=== PATIENT | female | born 1995 | race Caucasian/White ===

== ENCOUNTER 2017-04-24 21:40 | Emergency (ER) | payer BC ==
[~2017-04-24] VITALS: Ht 165.1 cm; Wt 95.0 kg
[2017-04-24 21:42] VITALS: BP 126/76; PULSE 95; RESP 16; TEMP 97.9; O2SAT 98
--- NOTE | 2017-04-24 23:00 | PD ---
HPI Chief Complaint: Injury Time Seen by Provider: 22:46 Travel History International Travel<30 days: No Contact w/Intl Traveler<30days: No Traveled to known affect area: No History of Present Illness HPI while playfully wrestling with her boyfriend he landed on her outstretched left arm. now c/o left shoulder pain, sharp, specially if lifting above 90 degrees and also left forearm pain as well. no gross deformity noted, pink extremity and able to move on her own. [facility] Past Medical History Medical History: Denies Significant Hx ?: Not Past Surgical History Surgical History: No Previous Surgery Social History Alcohol Use: No Tobacco Use: No Substance Use: No Allergies-Medications (Allergen,Severity, Reaction): Coded Allergies: No Known Allergies (Verified Allergy, Unknown, 04/24/17) Reported Meds & Prescriptions Reported Meds & Active Scripts Active No Active Prescriptions or Reported Medications Review of Systems Except as stated in HPI: all other systems reviewed are Neg General / Constitutional: No: Fever Eyes: No: Visual changes HENT: No: Headaches Cardiovascular: No: Chest Pain or Discomfort Respiratory: No: Shortness of Breath Gastrointestinal: No: Abdominal Pain Genitourinary: No: Dysuria Musculoskeletal: Positive: Pain Skin: No Rash Neurologic: No: Weakness Psychiatric: No: Depression Endocrine: No: Polydipsia Hematologic/Lymphatic: No: Easy Bruising Physical Exam Narrative GENERAL: SKIN: Warm and dry. HEAD: Atraumatic. Normocephalic. EYES: Pupils equal and round. No scleral icterus. No injection or drainage. ENT: No nasal bleeding or discharge. Mucous membranes pink and moist. NECK: Trachea midline. No JVD. CARDIOVASCULAR: Regular rate and rhythm. RESPIRATORY: No accessory muscle use. Clear to auscultation. Breath sounds equal bilaterally. GASTROINTESTINAL: Abdomen soft, non-tender, nondistended. MUSCULOSKELETAL: Extremities without clubbing, cyanosis, or edema. No obvious deformities. NEUROLOGICAL: Awake and alert. No obvious cranial nerve deficits. Motor grossly within normal limits. Five out of 5 muscle strength in the arms and legs. Normal speech. PSYCHIATRIC: Appropriate mood and affect; insight and judgment normal. Data Data Last Documented VS Vital Signs Date Time Temp Pulse Resp B/P (MAP) Pulse Ox O2 Delivery O2 Flow Rate FiO2 04/24/17 21:42 97.9 95 16 126/76 (93) 98 Room Air Orders Orders Shoulder, Complete (>2vws) (04/24/17 ) Forearm (2vws) (04/24/17 ) MDM Medical Decision Making Medical Screen Exam Complete: Yes Emergency Medical Condition: Yes Medical Record Reviewed: Yes Differential Diagnosis shoulder dislocation v shoulder fx v forearm fx v contusion v sprain Narrative Course XRAY NEG FOR DISLOCATION/FX/ OF SHOULDER/FOREARM/WRIST Diagnosis Primary Impression: Rotator cuff sprain Qualified Codes: S43.422A - Sprain of left rotator cuff capsule, initial encounter Additional Impression: Forearm contusion Qualified Codes: S50.12XA - Contusion of left forearm, initial encounter Scripts Cyclobenzaprine (Flexeril) 10 Mg Tab 10 MG PO TID for Muscle Spasm, #21 TAB 0 Refills Prov: Brigido Brown MD 04/24/17 Disposition: 01 DISCHARGE HOME Condition: Stable Brigido Brown MD Apr 24, 2017 23:00
--- NOTE | 2017-04-24 23:28 | RADRPT ---
EXAM DATE/TIME: 04/24/2017 23:05 [facility] COMPARISON: No previous studies available for comparison. INDICATIONS : Shoulder pain from wrestling. MEDICAL HISTORY : None. SURGICAL HISTORY : None. ENCOUNTER: Initial ACUITY: 1 day PAIN SCORE: 4/10 LOCATION: Left shoulder FINDINGS: Multiple view examination of the left shoulder demonstrates no evidence of fracture or dislocation. The glenohumeral and acromioclavicular joints are maintained. There is normal range of motion betwee n internal and external rotation. Bony mineralization is normal. CONCLUSION: No acute disease. Oliver Rob MD on April 24, 2017 at 23:26 Board Certified Radiologist. This report was verified electronically.
--- NOTE | 2017-04-24 23:29 | RADRPT ---
EXAM DATE/TIME: 04/24/2017 23:07 [facility] COMPARISON: No previous studies available for comparison. INDICATIONS : Arm pain from wrestling. MEDICAL HISTORY : None. SURGICAL HISTORY : None. ENCOUNTER: Initial ACUITY: 1 day PAIN SCORE: 0/10 LOCATION: Left forearm FINDINGS: Two view examination of the left forearm demonstrates no evidence of fracture or dislocation. Bony m ineralization is normal. The soft tissue structures are intact. CONCLUSION: No acute disease. Oliver Rob MD on April 24, 2017 at 23:26 Board Certified Radiologist. This report was verified electronically.
[2017-04-24] MEDS ORDERED: CYCL10TA PO (23:34)
[2017-04-24] MEDS ORDERED: NAPR375T4 PO (23:39)
== END 2017-04-24 23:55 | disposition home or self-care (01) ==
LOC: NEPD 21:40
DX: S43.422A Sprain of left rotator cuff capsule, initial encounter (principal); S50.12XA Contusion of left forearm, initial encounter; W51.XXXA Accidental striking against or bumped into by another person, initial encounter; Y93.72 Activity, wrestling
CPT/HCPCS: 73030; 73090; 99283